=== PATIENT | female | born 1930 | race African-American/Black ===

== ENCOUNTER 2018-03-30 21:07 | Emergency (ER) | payer MEDICARE, BC ==
[~2018-03-30] VITALS: Ht 160 cm; Wt 76.2 kg
[2018-03-30 22:03] VITALS: BP 130/88
[2018-03-30] MEDS ORDERED: IBUPROFEN600 MG ORAL (22:33)
[2018-03-30] MEDS ORDERED: ROBAXIN-750750 MG PO (22:33)
[2018-03-30 23:05] VITALS: BP 111/66
[2018-03-30] MEDS ORDERED: Methocarbamol 500mg tab ORAL ONE (23:09)
[2018-03-30] MEDS ORDERED: Methocarbamol 750mg tab ORAL ONE (23:15)
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
== END 2018-03-30 23:30 | disposition home or self-care (01) ==
LOC: EDBD 21:07 → EMR 23:20
DX: S40.012A Contusion of left shoulder, initial encounter (principal); S90.02XA Contusion of left ankle, initial encounter; S80.02XA Contusion of left knee, initial encounter; V43.62XA Car passenger injured in collision with other type car in traffic accident, initial encounter; Y92.410 Unspecified street and highway as the place of occurrence of the external cause
CPT/HCPCS: 99284